=== PATIENT | female | born 1980 | race Two or more races ===

== ENCOUNTER 2022-08-19 18:52 | Emergency (ER) | payer MEDICAID, OTHER ==
[~2022-08-19] VITALS: Ht 162.6 cm; Wt 70.0 kg
[2022-08-19] MEDS ORDERED: CEPH-510 PO (23:53)
[2022-08-19] MEDS ORDERED: NAP500T PO (23:53)
[2022-08-20] MEDS ORDERED: KETOROLAC TROMETH 60MG/2ML VIAL IM ONE
[2022-08-20 00:09] VITALS: BP 133/76
== END 2022-08-20 00:13 | disposition home or self-care (01) ==
LOC: ER 19:00
DX: S83.91XA Sprain of unspecified site of right knee, initial encounter (principal); E11.9 Type 2 diabetes mellitus without complications; Z98.51 Tubal ligation status; X58.XXXA Exposure to other specified factors, initial encounter; Y93.89 Activity, other specified; Y92.89 Other specified places as the place of occurrence of the external cause; Y99.8 Other external cause status
CPT/HCPCS: 29505; 73562; 96372; 99283; J1885; J7030

== ENCOUNTER 2022-08-21 17:56 | Inpatient (IN) | payer MEDICAID ==
[~2022-08-21] VITALS: Ht 162.6 cm; Wt 78.3 kg
[~2022-08-21 17:56] MED LIST: CEPH-510 PO; NAP500T PO
[2022-08-21] MEDS ORDERED: KETOROLAC TROMETH 30 MG/ML 1ML VIAL IV ONE (21:30)
[2022-08-21] MEDS ORDERED: SODIUM CHLORIDE 0.9% 2,000 ML IV ONE (21:30)
[2022-08-21] MEDS ORDERED: VANCOMYCIN 1GM/250ML 250 ML IV ONE (21:30)
[2022-08-21] MEDS ORDERED: MORPHINE SULFATE 4 MG/ML SYR/VIAL IV ONE (21:30)
[2022-08-21] MEDS ORDERED: ONDANSETRON HCL 4 MG/2 ML VIAL IV ONE (21:30)
[2022-08-21] MEDS ORDERED: cefTRIAXone 1GM/50ML D5W 50 ML IV ONE (21:30)
[2022-08-21] MEDS ORDERED: IOHEXOL 350 MG/ML 100ML IJ ONE (21:53)
[2022-08-21 22:34] LABS: Basophils # (auto) 0.1 10 ^3/uL (0-0.2); Eosinophils # (auto) 0 10 ^3/uL (0-0.8); Eosinophils % (auto) 0.3 % (0.0-7.0); Hemoglobin 9.4 g/dL (12.2-16.2); Neutrophils # (auto) 13.4 10 ^3/uL (1.6-8.6)
[2022-08-21 22:36] LABS: Basophils % (auto) 0.4 % (0.0-2.0); Hematocrit 29.6 % (36.0-46.0); Lymphocytes # (auto) 1.5 10 ^3/uL (0.4-5.4); Lymphocytes % (auto) 9.2 % (10.0-50.0); Mean Corpuscular Hgb Conc. 31.7 g/dL (32.0-36.0); Mean Corpuscular Volume 75.9 fL (80.0-100.0); Monocytes # (auto) 0.8 10 ^3/uL (0-1.3); Monocytes % (auto) 5.2 % (0.0-12.0); Neutrophils % (auto) 84.9 % (37.0-80.0); Red Cell Distribution Width 16.3 % (11.8-14.3); White Blood Cell 15.8 10^3/uL (4.4-10.8)
[2022-08-21 22:56] LABS: Albumin 2.6 g/dL (3.4-5.0); Blood Urea Nitrogen 26 mg/dL (7-18); Calcium 7.4 mg/dL (8.5-10.1); Carbon Dioxide 19 mmol/L (21-32)
[2022-08-21 23:01] LABS: Alanine Aminotransferase 20 U/L (13-56); Aspartate Aminotransferase 15 U/L (15-37); Chloride 102 mmol/L (98-107); GFR African American 74 mL/min; GFR Non-African American 61 mL/min; Potassium 4.4 mmol/L (3.5-5.1); Sodium 132 mmol/L (136-145)
[2022-08-21 23:09] LABS: Glucose 478 mg/dL (74-106)
[2022-08-21 23:10] LABS: Alkaline Phosphatase 130 U/L (45-117); Anion Gap 11 (5-15); BUN/Creatinine Ratio 24.8; Bilirubin, Total 0.3 mg/dL (0.2-1.0); Total Protein 6.5 g/dL (6.4-8.2)
[2022-08-21 23:11] LABS: CRP High Sensitivity > 19.0 mg/dL (< 0.3)
[2022-08-22] MEDS ORDERED: INSULIN LISPRO (HUMAN) 100 UNITS/ML ML SC ONE (01:00)
[2022-08-22] MEDS ORDERED: ACETAMINOPHEN 325 MG TAB PO PRN (02:30)
[2022-08-22] MEDS ORDERED: VANCOMYCIN PER PHARMACY 0 MG IV SCH (02:30)
[2022-08-22] MEDS ORDERED: DEXTROSE (50%) 50ML SYRG IV PRN (02:30)
[2022-08-22] MEDS: ACCU-CHEK COMFORT CURVE STRIP VI SCH ×6 (04:00→23:04)
[2022-08-22] MEDS: InsuLIN REG 1unit/0.01ml Soln (100units/ml) SC SCH ×6 (04:38→23:09)
[2022-08-22] MEDS: HYDROcodone-ACET 5/325MG TAB PO PRN ×2 (08:05→14:15)
[2022-08-22] MEDS: cefTRIAXone 1GM/50ML D5W 50 ML IV SCH (09:12)
[2022-08-22] MEDS: PANTOPRAZOLE 40 MG TAB PO SCH (10:00)
[2022-08-22] MEDS: VANCOMYCIN 1GM/250ML 250 ML IV SCH ×2 (11:14→23:03)
[2022-08-22] MEDS: ONDANSETRON HCL 4 MG/2 ML VIAL IV PRN (19:55)
[2022-08-22] MEDS: TEMAZEPAM 15 MG CAP PO PRN (23:15)
[2022-08-22 23:18] VITALS: BP 152/79
[2022-08-22 23:33] LABS: Urine Bacteria FEW /hpf (None Seen); Urine Blood 2+ /uL (Negative); Urine Specific Gravity 1.015 (1.001-1.035); Urine WBC 539 /hpf (0 - 5); Urine WBC Clumps PRESENT /hpf (None Seen)
[2022-08-22 23:52] LABS: Alcohol, Urine < 3.0 mg/dL (0-10); Amphetamine Screen, Urine NEGATIVE (NEGATIVE); Barbiturate Scree,Urine NEGATIVE (NEGATIVE); Benzodiazephine Screen, Urine NEGATIVE (NEGATIVE); Cannabinoid Screen, Urine NEGATIVE (NEGATIVE); Cocaine Screen, Urine NEGATIVE (NEGATIVE); Opiate Scree,Urine POSITIVE (NEGATIVE); Phencyclidine Screen, Urine NEGATIVE (NEGATIVE)
[2022-08-23] MEDS: ACCU-CHEK COMFORT CURVE STRIP VI SCH ×6 (03:33→23:54)
[2022-08-23] MEDS: InsuLIN REG 1unit/0.01ml Soln (100units/ml) SC SCH ×5 (03:37→20:24)
[2022-08-23 05:00] VITALS: BP_SYST 127; BP_SYST 133; BP_DIAS 68; BP_DIAS 83
[2022-08-23] MEDS: ONDANSETRON HCL 4 MG/2 ML VIAL IV PRN ×3 (06:00→22:47)
[2022-08-23 06:03] LABS: Basophils % (auto) 0.3 % (0.0-2.0); Eosinophils # (auto) 0 10 ^3/uL (0-0.8); Eosinophils % (auto) 0.1 % (0.0-7.0); Neutrophils # (auto) 13.7 10 ^3/uL (1.6-8.6)
[2022-08-23] MEDS: HYDROcodone-ACET 5/325MG TAB PO PRN ×2 (06:05→18:04)
[2022-08-23 06:06] LABS: Basophils # (auto) 0 10 ^3/uL (0-0.2); Hematocrit 27.5 % (36.0-46.0); Lymphocytes # (auto) 1.5 10 ^3/uL (0.4-5.4); Lymphocytes % (auto) 9.5 % (10.0-50.0); Mean Corpuscular Hemoglobin 24.3 pg (28.0-32.0); Mean Corpuscular Hgb Conc. 32.8 g/dL (32.0-36.0); Mean Corpuscular Volume 74.1 fL (80.0-100.0); Monocytes # (auto) 0.8 10 ^3/uL (0-1.3); Monocytes % (auto) 4.9 % (0.0-12.0); Neutrophils % (auto) 85.2 % (37.0-80.0); Nucleated Red Blood Cells % 0.1 %; Red Blood Cells 3.72 10^6/uL (4.0-5.20); Red Cell Distribution Width 16.1 % (11.8-14.3); White Blood Cell 16.1 10^3/uL (4.4-10.8)
[2022-08-23 06:17] LABS: INR 0.97 (0.9-1.15); Partial Thromboplastin Time 31.9 sec (24.6-33.4)
[2022-08-23 06:24] LABS: Albumin 2.4 g/dL (3.4-5.0); BUN/Creatinine Ratio 9.8; Calcium 7.3 mg/dL (8.5-10.1); Potassium 3.9 mmol/L (3.5-5.1)
[2022-08-23 06:27] LABS: Bilirubin, Total 0.4 mg/dL (0.2-1.0); Total Protein 6.7 g/dL (6.4-8.2)
[2022-08-23] MEDS: PANTOPRAZOLE 40 MG TAB PO SCH (10:00)
[2022-08-23] MEDS: cefTRIAXone 1GM/50ML D5W 50 ML IV SCH (10:30)
[2022-08-23] MEDS: VANCOMYCIN 1GM/250ML 250 ML IV SCH ×2 (11:00→20:55)
[2022-08-23 12:00] VITALS: BP 102/56
[2022-08-23] MEDS ORDERED: ceFAZolin 1GM/50ML 100 ML IV ONE (13:16)
[2022-08-23] MEDS ORDERED: ceFAZolin 1GM VL ONE (14:06)
[2022-08-23] MEDS ORDERED: fentaNYL CITRATE 100 MCG/2 ML VL ONE (14:16)
[2022-08-23] MEDS ORDERED: METOCLOPRAMIDE HCL 5MG/ml INJ 2ml VIAL ONE (14:17)
[2022-08-23] MEDS ORDERED: PROPOFOL 10 MG/ML 20 ML IV ONE (14:17)
[2022-08-23] MEDS ORDERED: KETOROLAC TROMETH 30 MG/ML 1ML VIAL ONE (14:17)
[2022-08-23] MEDS ORDERED: ONDANSETRON HCL 4 MG/2 ML VIAL ONE (14:17)
[2022-08-23] MEDS ORDERED: LIDOCAINE 2% (LOCAL ANESTH.) PF 5ml SDV ONE (14:18)
[2022-08-23] MEDS ORDERED: GLYCOPYRROLATE 0.2 MG/ML 1ML VIAL ONE (14:21)
[2022-08-23] MEDS ORDERED: HYDROmorphone HCL 2 MG/ML VL/or syr ONE (15:27)
[2022-08-23] MEDS: HYDROmorphone HCL 2 MG/ML VL/or syr IV PRN ×2 (15:32→15:43)
[2022-08-23 16:00] VITALS: BP 127/80
[2022-08-23] MEDS: ENOXAPARIN SOD 40 MG/0.4 ML SYRINGE SC SCH (18:01)
[2022-08-23 21:26] VITALS: BP 130/84
[2022-08-23] MEDS ORDERED: INSULIN LANTUS (GLARGINE) 1 /0.01ml (100units/ml) SC SCH (22:00)
[2022-08-23] MEDS: TEMAZEPAM 15 MG CAP PO PRN (22:57)
[2022-08-24] MEDS: InsuLIN REG 1unit/0.01ml Soln (100units/ml) SC SCH ×6 (00:01→21:40)
[2022-08-24] MEDS: HYDROcodone-ACET 5/325MG TAB PO PRN ×3 (00:05→18:16)
[2022-08-24] MEDS: ACCU-CHEK COMFORT CURVE STRIP VI SCH ×5 (03:49→21:41)
[2022-08-24 04:51] VITALS: BP 127/72
[2022-08-24] MEDS: VANCOMYCIN 1GM/250ML 250 ML IV SCH ×3 (05:23→21:41)
[2022-08-24 05:50] LABS: Basophils # (auto) 0 10 ^3/uL (0-0.2); Basophils % (auto) 0.1 % (0.0-2.0); Eosinophils # (auto) 0 10 ^3/uL (0-0.8); Mean Corpuscular Hemoglobin 23.6 pg (28.0-32.0); Monocytes # (auto) 0.4 10 ^3/uL (0-1.3); White Blood Cell 15.9 10^3/uL (4.4-10.8)
[2022-08-24 05:51] LABS: Hematocrit 27.1 % (36.0-46.0); Hemoglobin 8.7 g/dL (12.2-16.2); Lymphocytes # (auto) 0.9 10 ^3/uL (0.4-5.4); Lymphocytes % (auto) 5.6 % (10.0-50.0); Mean Corpuscular Volume 73.5 fL (80.0-100.0); Monocytes % (auto) 2.7 % (0.0-12.0); Neutrophils # (auto) 14.6 10 ^3/uL (1.6-8.6); Neutrophils % (auto) 91.6 % (37.0-80.0); Red Blood Cells 3.69 10^6/uL (4.0-5.20); Red Cell Distribution Width 16.2 % (11.8-14.3)
[2022-08-24 06:05] LABS: Calcium 7.5 mg/dL (8.5-10.1); Potassium 4.5 mmol/L (3.5-5.1)
[2022-08-24 06:08] LABS: BUN/Creatinine Ratio 21.5
[2022-08-24 08:43] VITALS: BP 147/72
[2022-08-24] MEDS: PANTOPRAZOLE 40 MG TAB PO SCH (11:52)
[2022-08-24] MEDS: ENOXAPARIN SOD 40 MG/0.4 ML SYRINGE SC SCH (11:54)
[2022-08-24] MEDS: ONDANSETRON HCL 4 MG/2 ML VIAL IV PRN ×2 (11:55→18:16)
[2022-08-24] MEDS: cefTRIAXone 1GM/50ML D5W 50 ML IV SCH (12:00)
[2022-08-24 13:00] VITALS: BP 155/97
[2022-08-24 17:20] VITALS: BP 137/85
[2022-08-24] MEDS: INSULIN LANTUS (GLARGINE) 1 /0.01ml (100units/ml) SC SCH (18:24)
[2022-08-24 22:00] VITALS: BP 140/80
[2022-08-24] MEDS ORDERED: KETOROLAC TROMETH 30 MG/ML 1ML VIAL IV ONE (22:00)
[2022-08-24] MEDS ORDERED: PROMETHAZINE HCL 25 MG/ML 1ML IV PRN (22:00)
[2022-08-25] MEDS: ACCU-CHEK COMFORT CURVE STRIP VI SCH ×7 (02:20→23:14)
[2022-08-25] MEDS: InsuLIN REG 1unit/0.01ml Soln (100units/ml) SC SCH ×7 (02:22→23:07)
[2022-08-25 05:00] VITALS: BP 141/75
[2022-08-25] MEDS: VANCOMYCIN 1GM/250ML 250 ML IV SCH ×3 (06:25→21:02)
[2022-08-25 06:30] LABS: Basophils # (auto) 0.1 10 ^3/uL (0-0.2); Basophils % (auto) 0.5 % (0.0-2.0); Eosinophils # (auto) 0.1 10 ^3/uL (0-0.8); Eosinophils % (auto) 0.5 % (0.0-7.0); Hematocrit 25.9 % (36.0-46.0); Hemoglobin 8.3 g/dL (12.2-16.2); Lymphocytes # (auto) 2.9 10 ^3/uL (0.4-5.4); Lymphocytes % (auto) 23.7 % (10.0-50.0); Mean Corpuscular Hemoglobin 23.8 pg (28.0-32.0); Mean Corpuscular Volume 74.4 fL (80.0-100.0); Monocytes # (auto) 0.7 10 ^3/uL (0-1.3); Monocytes % (auto) 5.7 % (0.0-12.0); Neutrophils # (auto) 8.5 10 ^3/uL (1.6-8.6); Neutrophils % (auto) 69.6 % (37.0-80.0); Red Blood Cells 3.48 10^6/uL (4.0-5.20); Red Cell Distribution Width 16.8 % (11.8-14.3); White Blood Cell 12.2 10^3/uL (4.4-10.8)
[2022-08-25 09:00] VITALS: BP 131/80
[2022-08-25] MEDS: ENOXAPARIN SOD 40 MG/0.4 ML SYRINGE SC SCH (10:46)
[2022-08-25] MEDS: cefTRIAXone 1GM/50ML D5W 50 ML IV SCH (10:46)
[2022-08-25] MEDS: PANTOPRAZOLE 40 MG TAB PO SCH (10:46)
[2022-08-25 13:00] VITALS: BP 133/82
[2022-08-25] MEDS: HYDROcodone-ACET 5/325MG TAB PO PRN ×2 (13:18→18:00)
[2022-08-25 17:00] VITALS: BP 143/72
[2022-08-25] MEDS: INSULIN LANTUS (GLARGINE) 1 /0.01ml (100units/ml) SC SCH (18:04)
[2022-08-25 21:38] VITALS: BP 129/70
[2022-08-26] MEDS: InsuLIN REG 1unit/0.01ml Soln (100units/ml) SC SCH ×3 (04:00→11:43)
[2022-08-26] MEDS: ACCU-CHEK COMFORT CURVE STRIP VI SCH ×3 (04:00→11:43)
[2022-08-26 05:00] VITALS: BP 127/70
[2022-08-26] MEDS: VANCOMYCIN 1GM/250ML 250 ML IV SCH ×2 (05:04→12:19)
[2022-08-26] MEDS: ENOXAPARIN SOD 40 MG/0.4 ML SYRINGE SC SCH (08:17)
[2022-08-26] MEDS: cefTRIAXone 1GM/50ML D5W 50 ML IV SCH (08:17)
[2022-08-26] MEDS: KETOROLAC TROMETH 30 MG/ML 1ML VIAL IV PRN ×3 (08:17→14:50)
[2022-08-26] MEDS: PANTOPRAZOLE 40 MG TAB PO SCH (08:22)
[2022-08-26 10:02] VITALS: BP 146/88
[2022-08-26] MEDS ORDERED: IBUP600T27 PO (12:30)
[2022-08-26 13:00] VITALS: BP 131/75
[2022-08-26 14:29] VITALS: BP 131/75
== END 2022-08-26 16:35 | disposition home health service (06) | DRG 317 ==
LOC: ER 17:56 → OVERFLOW 08-22 02:30 → EAST 08-22 21:09
PROVIDERS: ADMIT Nurse Practitioner; ATTEND Hospitalist
PROC: 0MBN0ZZ Excision of Right Knee Bursa and Ligament, Open Approach (ICD-10-PCS; principal; 2022-08-23 14:17)
PROC: 05HA33Z Insertion of Infusion Device into Left Brachial Vein, Percutaneous Approach (ICD-10-PCS; 2022-08-26)
PROC: B54NZZA Ultrasonography of Left Upper Extremity Veins, Guidance (ICD-10-PCS; 2022-08-26)
DX: M00.861 Arthritis due to other bacteria, right knee (principal); E43 Unspecified severe protein-calorie malnutrition; M00.9 Pyogenic arthritis, unspecified; E11.65 Type 2 diabetes mellitus with hyperglycemia; S83.91XA Sprain of unspecified site of right knee, initial encounter; L03.115 Cellulitis of right lower limb; M70.40 Prepatellar bursitis, unspecified knee; J45.909 Unspecified asthma, uncomplicated; W18.39XA Other fall on same level, initial encounter; Z20.822 Contact with and (suspected) exposure to COVID-19; Z68.29 Body mass index [BMI] 29.0-29.9, adult; Z98.51 Tubal ligation status; Y93.89 Activity, other specified; Y92.89 Other specified places as the place of occurrence of the external cause; Y99.8 Other external cause status
CPT/HCPCS: 36415; 71045; 73701; 73721; 80048; 80053; 80202; 80307; 81001; 81025; 82962; 83036; 83605; 85025; 85610; 85652; 85730; 86141; 86850; 86900; 86901; 87040; 87070; 87075; 87077; 87186; 87205; 87426; 96361; 96365; 96367; 96372; 96375; 97116; 97163; 97530; G0378; J0690; J0696; J1815; J1885; J2001; J2405; J2704

== ENCOUNTER 2022-12-22 01:25 | Emergency (ER) | payer MEDICAID ==
[~2022-12-22] VITALS: Ht 160 cm; Wt 65.6 kg
[~2022-12-22 01:25] MED LIST changes: -CEPH-510 PO; +IBUP600T27 PO; -NAP500T PO
[2022-12-22 01:50] VITALS: BP 145/94
== END 2022-12-22 07:30 | disposition left against medical advice (07) ==
LOC: ER 01:25
DX: F41.0 Panic disorder [episodic paroxysmal anxiety] (principal); F41.8 Other specified anxiety disorders; Z53.21 Procedure and treatment not carried out due to patient leaving prior to being seen by health care provider
CPT/HCPCS: 82962